=== PATIENT | male | born 1995 | race Caucasian/White ===

== ENCOUNTER 2018-07-14 18:34 | Emergency (ER) | payer BC ==
[2018-07-14 19:04] VITALS: BP 116/80
[2018-07-14 19:21] LABS: Influenza A Molecular NEGATIVE (Negative); Influenza B Molecular NEGATIVE (Negative)
--- NOTE | 2018-07-14 19:28 | UC ---
Respiratory Complaint HPI - HPI Summary HPI Summary: Patient is a 22-year-old male with the onset of fever, chills, myalgias nasal congestion and cough that started about 24 hours a day. His mom was just diagnosed with the flu about a week and a half ago. - History of Current Complaint Chief Complaint: UCGeneralIllness Stated Complaint: BODY ACHES/CONGESTION/SORE THROAT Time Seen by Provider: 07/14/18 18:57 Hx Obtained From: Patient Onset/Duration: Gradual Onset, Lasting Hours Timing: Constant Severity Initially: Moderate Severity Currently: Mild Pain Intensity: 3 Pain Scale Used: 0-10 Numeric Character: Cough: Nonproductive Aggravating Factors: Nothing Alleviating Factors: Nothing Associated Signs And Symptoms: Positive: Chills, Nasal Congestion, Sinus Discomfort - Allergies/Home Medications Allergies/Adverse Reactions: Allergies Allergy/AdvReac Type Severity Reaction Status Date / Time No Known Allergies Allergy Verified 07/14/18 19:03 PMH/Surg Hx/FS Hx/Imm Hx Previously Healthy: Yes - Surgical History Surgical History: None - Family History Known Family History: Positive: Hypertension - Social History Alcohol Use: None Substance Use Type: None Smoking Status (MU): Never Smoked Tobacco Review of Systems All Other Systems Reviewed And Are Negative: Yes Constitutional: Positive: Fever - ?, Chills, Fatigue Skin: Positive: Negative Eyes: Positive: Negative ENT: Positive: Nasal Discharge Respiratory: Positive: Cough Cardiovascular: Positive: Negative Gastrointestinal: Positive: Negative Genitourinary: Positive: Negative Motor: Positive: Negative Neurovascular: Positive: Negative Musculoskeletal: Positive: Myalgia Neurological: Positive: Headache Psychological: Positive: Negative Physical Exam Triage Information Reviewed: Yes Appearance: Well-Appearing, No Pain Distress, Well-Nourished Vital Signs: Initial Vital Signs Temp 98.1 F 07/14/18 18:50 Pulse 89 07/14/18 18:50 Resp 20 07/14/18 18:50 BP 116/80 07/14/18 18:50 Pulse Ox 99 07/14/18 18:50 Vital Signs Reviewed: Yes Eyes: Positive: Conjunctiva Clear ENT: Positive: Hearing grossly normal, Pharyngeal erythema, Nasal congestion, Nasal drainage, TMs normal, Uvula midline. Negative: Tonsillar swelling, Tonsillar exudate, Trismus, Muffled voice, Hoarse voice, Dental tenderness, Sinus tenderness Dental Exam: Normal Neck: Positive: Supple, Nontender, No Lymphadenopathy Respiratory: Positive: Lungs clear, Normal breath sounds, No respiratory distress, No accessory muscle use Cardiovascular: Positive: RRR, No Murmur Musculoskeletal: Positive: ROM Intact, No Edema Neurological: Positive: Alert Psychological Exam: Normal Skin Exam: Normal UC Diagnostic Evaluation - Laboratory O2 Sat by Pulse Oximetry: 99 - normal/not hypoxic Diagnostic Studies Comment: influenza (-) Respiratory Course/Dx - Differential Dx/Diagnosis Provider Diagnosis: Influenza-like illness Discharge - Sign-Out/Discharge Documenting (check all that apply): Patient Departure All imaging exams completed and their final reports reviewed: No Studies - Discharge Plan Condition: Stable Disposition: HOME Prescriptions: Oseltamivir CAP* [Tamiflu CAP*] 75 mg PO BID #10 cap Patient Education Materials: Influenza (ED) Forms: *Work Release Referrals: No Primary Care Phys,NOPCP [Primary Care Provider] - Additional Instructions: rest fluids recheck in 1 week if not better tylenol or advil - Billing Disposition and Condition Condition: STABLE Disposition: Home
== END 2018-07-14 19:32 | disposition home or self-care (01) ==
LOC: UCCORT 18:34
DX: J11.1 Influenza due to unidentified influenza virus with other respiratory manifestations (principal)
CPT/HCPCS: 99202; G0463

== ENCOUNTER 2019-06-12 17:40 | Emergency (ER) | payer BC ==
[2019-06-12 18:18] VITALS: BP 135/90
--- NOTE | 2019-06-12 18:50 | UC ---
Headache HPI - HPI Summary HPI Summary: 23 yo with onset of headache during intercourse on 4 occasions in the past week. Headache increases with increasing intensity of experience, cannot determine if it correlates with orgasm. Headache is bilateral and has some associated photophobia, but no scotoma, visual loss, neck stiffness, nausea or vomiting. The severe headache lasts for about 15 minutes, then decreases to a dull throb. He has used both acetaminophen and ibuprofen with some relief of pain. No associated ataxia, dizziness or changes in mentation. No previous hx of migraine headache. Last headache was about 17 hours ago. 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 Uses occasional marijuana, which actually helped to relieve pain yesterday. He does not use any form of stimulant medication. - History Of Current Complaint Chief Complaint: UCHeadache Stated Complaint: MEEHAN Time Seen by Provider: 06/12/19 18:35 Hx Obtained From: Patient Onset/Duration: Sudden Onset, Lasting Minutes Onset Of Symptoms: Sudden Initially Headache Was: Severe Pain Intensity: 0 Timing: Intermittent, Lasting:, Hours Character: Throbbing Location of Headache: Diffuse Aggravating Factor(s): Exertion, Position Change, Bright Lights Allevating Factor(s): Rest, Medication Associated Signs And Symptoms: Negative: Dizziness, Seizure, Nausea, Vomiting, Sinus Pressure, Fever, Neck Pain, Neck Stiffness, Decreased LOC, Visual Changes - Risk Factors SAH Risk Factors: Negative Meningitis Risk Factors: Negative SDH Risk Factors: Male Temporal Arteritis Risk Factors: Negative - Allergies/Home Medications Allergies/Adverse Reactions: Allergies Allergy/AdvReac Type Severity Reaction Status Date / Time No Known Allergies Allergy Verified 06/12/19 18:18 PMH/Surg Hx/FS Hx/Imm Hx Previously Healthy: Yes - Surgical History Surgical History: None - Family History Known Family History: Positive: Hypertension - Social History Occupation: Employed Full-time Alcohol Use: Occasionally Substance Use Type: Marijuana Substance Use Comment - Amount & Last Used: Uses most every day Smoking Status (MU): Never Smoked Tobacco Have You Smoked in the Last Year: No Review of Systems All Other Systems Reviewed And Are Negative: Yes Constitutional: Positive: Negative Skin: Positive: Negative Eyes: Positive: Photophobia. Negative: Blurred Vision ENT: Positive: Negative Respiratory: Positive: Negative Cardiovascular: Positive: Negative Gastrointestinal: Positive: Negative Genitourinary: Positive: Negative Motor: Positive: Negative Neurovascular: Positive: Negative Musculoskeletal: Positive: Negative Neurological: Positive: Headache Psychological: Positive: Negative Is Patient Immunocompromised?: No Physical Exam Triage Information Reviewed: Yes Appearance: Well-Appearing, Pain Distress - mild Vital Signs: Initial Vital Signs Temp 97.8 F 06/12/19 18:11 Pulse 66 06/12/19 18:11 Resp 18 06/12/19 18:11 BP 135/90 06/12/19 18:11 Pulse Ox 98 06/12/19 18:11 Vital Signs Reviewed: Yes Eye Exam: Other - mild upper and lower lid inflammation. Eyes tear easily with light exposure. LYNDSEY, could not see fundi well (states longstanding tearing with light exposure). Normal EOM, no nystagmus. Eyes: Positive: Conjunctiva Clear ENT: Positive: Pharynx normal, TMs normal Neck: Positive: Supple - freely mobile., Nontender, No Lymphadenopathy Respiratory: Positive: Lungs clear, Normal breath sounds, No respiratory distress Cardiovascular: Positive: RRR, No Murmur Musculoskeletal Exam: Normal Neurological Exam: Other - CNII-XII normal. No past pointing with finger to nose touching. No pronator drift. Negative Romberg's. Normal gait, heel to toe walks easily. Neurological: Positive: Alert - Oriented x 3, clear mentation., Muscle Tone Normal Psychological Exam: Normal Skin Exam: Normal Diagnostics - Radiology No standard instances Radiology Interpretation Completed By: Radiologist - Normal CT scan of the brain per [facility]. Headache Course/Dx - Course Course Of Treatment: Discussed typical work up of coital headache and suggested emergency room evaluation. Discussed that MRI/MRA is indicated, and possibly lumbar puncture. Currently he has minimal headache and no findings of concern on exam. and he is aware that emergency room evaluation is indicated for any recurrentce. given that he lacks a primary care doctor, suggested [facility] for evaluation. - Differential Dx/Diagnosis Differential Diagnosis/HQI/PQRI: Subarachnoid Hemorrhage, Tension Headache, Other - coital headache Provider Diagnosis: Coital headache Discharge ED - Sign-Out/Discharge Documenting (check all that apply): Patient Departure All imaging exams completed and their final reports reviewed: Yes - Discharge Plan Condition: Stable Disposition: HOME Patient Education Materials: Migraine Headache (ED) Referrals: No Primary Care Phys,NOPCP [Primary Care Provider] - Júnior Pride MD [Medical Doctor] - Care [facility] [Outside] Additional Instructions: You have suspected post coital headache, which is most likely a variant of a migraine headache. Your CT scan of the brain is normal, but it is important to have the headache more thoroughly evaluated with further imaging. Please follow up with the [facility] for follow up evaluation this week. You also have a neurology referral but these are often scheduled weeks out, so an evaluation at [facility] can get the imaging in process. - Billing Disposition and Condition Condition: STABLE Disposition: Home
== END 2019-06-12 20:28 | disposition home or self-care (01) ==
LOC: UCCORT 17:40
DX: G44.82 Headache associated with sexual activity (principal)
CPT/HCPCS: 70450; 99211; G0463